=== PATIENT | male | born 1960 | race Caucasian/White ===

== ENCOUNTER 2021-05-17 16:13 | Emergency (ER) | payer MEDICAID ==
[~2021-05-17] VITALS: Ht 175.3 cm; Wt 69.5 kg
[~2021-05-17 16:13] MED LIST: AMOX500C7 PO; IBUP-1574 PO
[2021-05-17 16:29] VITALS: BP 88/62
--- NOTE | 2021-05-17 19:21 | NUR ---
ATTEMPTED TO CALL PT TO COME TO LOBBY, PHONE NUMBER ON PT'S CHART NOT A WORKING NUMBER
== END 2021-05-17 20:29 | disposition left against medical advice (07) ==
LOC: ER 16:13
DX: R42 Dizziness and giddiness (principal); Z53.21 Procedure and treatment not carried out due to patient leaving prior to being seen by health care provider
CPT/HCPCS: 93005

== ENCOUNTER 2022-04-24 11:43 | Emergency (ER) | payer MEDICAID ==
[~2022-04-24] VITALS: Ht 175.3 cm; Wt 80.0 kg
[2022-04-24 12:06] VITALS: BP 144/89
[2022-04-24] MEDS ORDERED: CEPH-585 PO (13:12)
== END 2022-04-24 13:38 | disposition home or self-care (01) ==
LOC: ER 11:44
DX: S81.802S Unspecified open wound, left lower leg, sequela (principal); L03.116 Cellulitis of left lower limb; I11.9 Hypertensive heart disease without heart failure; F17.200 Nicotine dependence, unspecified, uncomplicated; F15.10 Other stimulant abuse, uncomplicated; Z88.1 Allergy status to other antibiotic agents; Z79.899 Other long term (current) drug therapy; X58.XXXS Exposure to other specified factors, sequela
CPT/HCPCS: 99283